=== PATIENT | female | born 1960 | race Asian ===

== ENCOUNTER 2018-06-16 08:35 | Emergency (ER) | payer MEDICAID ==
[~2018-06-16] VITALS: Ht 160 cm; Wt 68.2 kg
[2018-06-16] MEDS ORDERED: ACET-2116 PO (08:43)
[2018-06-16] MEDS ORDERED: MORPHINE SULFATE 4 MG/ML SYRINGE IM ONE (09:30)
[2018-06-16] MEDS ORDERED: ONDANSETRON HCL 4 MG/2 ML VIAL IM ONE (09:30)
[2018-06-16] MEDS ORDERED: PROMETHAZINE HCL 25 MG TABLET PO ONE (11:45)
[2018-06-16 13:26] VITALS: BP 129/63
== END 2018-06-16 14:16 | disposition home or self-care (01) ==
LOC: EMS 08:36
DX: S22.42XA Multiple fractures of ribs, left side, initial encounter for closed fracture (principal); M25.512 Pain in left shoulder; M54.6 Pain in thoracic spine; F17.210 Nicotine dependence, cigarettes, uncomplicated; Z79.899 Other long term (current) drug therapy; W11.XXXA Fall on and from ladder, initial encounter; Y93.89 Activity, other specified; Y92.098 Other place in other non-institutional residence as the place of occurrence of the external cause; Y99.8 Other external cause status
CPT/HCPCS: 71101; 73030; 73590; 96372; 99284; J2270; J2405